=== PATIENT | female | born 1990 ===

== ENCOUNTER 2021-07-23 05:52 | Emergency (ER) | payer BC ==
--- NOTE | 2021-07-23 07:06 | EDM.PDOC ---
ED HPI GENERAL MEDICAL PROBLEM - General Chief Complaint: ENT Problem Stated Complaint: EAR PAIN Time Seen by Provider: 07/23/21 06:47 Source of Information: Reports: Patient History Limitations: Reports: No Limitations - History of Present Illness INITIAL COMMENTS - FREE TEXT/NARRATIVE: Patient is a 31-year-old female who presents today for left ear pain. States that she was sleeping when she woke up she had intense pain in her ear. She tried to put some olive oil in there because she already stopped the pain. Patient says this did not stop the pain. None admits pain better or worse he feels a achy feeling. She denies going swimming or putting any Q-tips or anything in her ear recently. Denies any hearing problems vision problems any sinus problems or other complaints. She denies any nausea vomiting fever chills. She is 8 weeks and denies any vaginal bleeding or other issues. L ear Pain Score (Numeric/FACES): 7 - Related Data Allergies Allergy/AdvReac Type Severity Reaction Status Date / Time No Known Allergies Allergy Verified 07/23/21 06:05 Home Meds: Home Meds . [No Known Home Meds] 07/23/21 [History] Past Medical History - Infectious Disease History Infectious Disease History: Reports: Chicken Pox - Past Surgical History Female Surgical History: Reports: Breast Implant Dermatological Surgical History: Reports: Skin Biopsy Social & Family History - Family History Family Medical History: No Pertinent Family History - Tobacco Use Tobacco Use Status *Q: Never Tobacco User - Caffeine Use Caffeine Use: Reports: Coffee - Recreational Drug Use Recreational Drug Use: No ED ROS ENT - Review of Systems Review Of Systems: See Below Constitutional: Reports: No Symptoms HEENT: Reports: Ear Pain Respiratory: Reports: No Symptoms Endocrine: Reports: No Symptoms GI/Abdominal: Reports: No Symptoms : Reports: No Symptoms Musculoskeletal: Reports: No Symptoms Skin: Reports: No Symptoms Neurological: Reports: No Symptoms Psychiatric: Reports: No Symptoms Hematologic/Lymphatic: Reports: No Symptoms Immunologic: Reports: No Symptoms ED EXAM, ENT - Physical Exam Exam: See Below Exam Limited By: No Limitations General Appearance: Alert, WD/WN, No Apparent Distress Eye Exam: Bilateral Eye: EOMI, PERRL Ears: Normal External Exam, Normal Canal, TM Erythema Head: Atraumatic Respiratory/Chest: No Respiratory Distress Extremities: Normal Inspection Neurological: Alert, Oriented, Normal Cognition, Normal Gait Course - Vital Signs Last Recorded V/S: Last Vital Signs Temp 98.4 F 07/23/21 06:06 Pulse 92 07/23/21 06:06 Resp 16 07/23/21 06:06 BP 112/60 07/23/21 06:06 Pulse Ox 96 07/23/21 06:06 Departure - Departure Time of Disposition: 07:06 Disposition: Home, Self-Care 01 Condition: Good Clinical Impression: Otitis media - Discharge Information *PRESCRIPTION DRUG MONITORING PROGRAM REVIEWED*: Not Applicable *COPY OF PRESCRIPTION DRUG MONITORING REPORT IN PATIENT TIBURCIO: Not Applicable Instructions: Otitis Media, Adult, [id number] Referrals: Milvia Vicente SURVEY TECHNOLOGIST [Primary Care Provider] - Additional Instructions: You were seen today for pain in your left ear. Your tympanic membrane was the covering of your ear drum is slightly red much of this is due to the alible you placed near a due to early infection. What I can say is that we should start some antibiotics he can take Tylenol for pain. If your symptoms start or worse please return to the ED otherwise follow-up with your primary care physician. The following information is given to patients seen in the emergency department who are being discharged to home. This information is to outline your options for follow-up care. We provide all patients seen in our emergency department with a follow-up referral. The need for follow-up, as well as the timing and circumstances, are variable depending upon the specifics of your emergency department visit. If you don't have a primary care physician on staff, we will provide you with a referral. We always advise you to contact your personal physician following an emergency department visit to inform them of the circumstance of the visit and for follow-up with them and/or the need for any referrals to a consulting specialist. The emergency department will also refer you to a specialist when appropriate. This referral assures that you have the opportunity for follow-up care with a specialist. All of these measure are taken in an effort to provide you with optimal care, which includes your follow-up. Under all circumstances we always encourage you to contact your private physician who remains a resource for coordinating your care. When calling for follow-up care, please make the office aware that this follow-up is from your recent emergency room visit. If for any reason you are refused follow-up, please contact the [facility] at and asked to speak to the emergency department charge nurse. Please follow up with your primary care physician. If you do not have a primary care physician, see below: [facility] [address] [place] [id number] [facility] [address] [place] [address] Sepsis Event Note (ED) - Evaluation Sepsis Screening Result: No Definite Risk - Focused Exam Vital Signs: Vital Signs Temp Pulse Resp BP Pulse Ox 07/23/21 06:06 98.4 F 92 16 112/60 96 - Assessment/Plan Plan: Patient is a 31-year-old female who presents today for left ear pain. Patient for all of oil in the ear for pain control. When doing the tympanic membrane exam the left is slightly reddened not sure this is due to irritation or due to early infection. We will likely treat and have patient follow-up with her PMD.
== END 2021-07-23 07:18 | disposition home or self-care (01) ==
LOC: MW.ED 05:52
DX: H66.92 Otitis media, unspecified, left ear (principal)
CPT/HCPCS: 99282